=== PATIENT | male | born 1970 | race Caucasian/White ===

== ENCOUNTER 2017-05-01 21:04 | Emergency (ER) | payer OTHER ==
[2017-05-01 21:54] LABS: BASOPHILS 0.5 % (0-2); EOSINOPHILS 2.5 % (0-7); HEMATOCRIT 42.2 % (42.0-54.0); HEMOGLOBIN 13.9 g/dL (13.5-17.5); IMMATURE GRANULOCYTES 0.1 % (0-5); LYMPHOCYTES 30.7 % (15-50); MCH 27.8 pg (26.0-34.0); MCHC 32.9 g/dL (31.0-37.0); MCV 84.4 fL (80.0-100.0); MEAN PLATELET VOLUME 10.7 fL (7.4-10.4); MONOCYTES 9.9 % (2-11); NEUTROPHILS 56.3 % (40-80); PLATELET COUNT 297 10x3/uL (130-400); RDW 12.7 % (11.5-14.5); WBC 8.6 10x3/uL (4.8-10.8)
[2017-05-01 22:12] LABS: ALBUMIN 3.8 g/dL (3.4-5.0); ALKALINE PHOSPHATASE 122 U/L (46-116); ALT (SGPT) 36 U/L (10-68); CALC OSMOLALITY 281 mosm/kg (275-300); CALCIUM 9.1 mg/dL (8.5-10.1); CARBON DIOXIDE 28.3 mmol/L (21.0-32.0); CHLORIDE - SERUM 104 mmol/L (98-107); CREATININE - SERUM 1.4 mg/dL (0.6-1.3); GLUCOSE 114 mg/dL (74-106); POTASSIUM - SERUM 3.6 mmol/L (3.5-5.1); PROTEIN - SERUM 7.5 g/dL (6.4-8.2); SODIUM 140 mmol/L (136-145); UREA NITROGEN 17 mg/dL (7-18); eGFR NON AFRICAN AMERICAN 57 mL/min (90-120)
[2017-05-01 22:22] LABS: CHOL - HDL RATIO 4.2 ratio (2.3-4.9); CHOLESTEROL, TOTAL 157 mg/dL (0-200); CKMB 2.4 U/L (0.0-3.6); CREATINE KINASE 338 UL (21-232); HDL CHOLESTEROL 37 mg/dL (32-96); LDL CHOLESTEROL 91 mg/dL (0-100); LDL-HDL RATIO 2.5 ratio (1.5-3.5); TRIGLYCERIDE 145 mg/dL (30-200); TROPONIN-I < 0.017 ng/mL (0.000-0.060)
== END 2017-05-02 01:05 | disposition home or self-care (01) ==
LOC: D.ER 21:04
PROVIDERS: Emergency Medicine
DX: R07.9 Chest pain, unspecified (principal); R42 Dizziness and giddiness; I10 Essential (primary) hypertension; F41.9 Anxiety disorder, unspecified

== ENCOUNTER 2018-04-10 22:13 | Observation (INO) | payer OTHER ==
[~2018-04-10] VITALS: Ht 185.4 cm; Wt 97.5 kg
--- NOTE | ~2018-04-10 | MORECARE ---
CASE MANAGEMENT DISCHARGE SUMMARY PATIENT: TAYLOR BANEGAS UNIT: [id number] ADM DATE: 04/12/18 AGE: 47 : [birth year] SEX: M ROOM/BED: D.2101 AUTHOR: ALLI,DOC PHYSICIAN: REFERRING PHYSICIAN: THERESA RICHTER MD DATE OF SERVICE: 04/16/18 Discharge Plan Patient Name: TAYLOR BANEGAS Facility: [facility]:[place] : 1970 Planned Disposition: Home Anticipated Discharge Date: 04/16/18 Discharge Date: 04/16/2018 Expected LOS: 4 Initial Reviewer: [email or web address] Initial Review Date: 04/16/2018 Generated: 04/16/18 5:43 pm Comments DCP- Discharge Planning Updated by [email or web address]: Papi Du on 04/16/18 3:[address] Patient Name: TAYLOR BANEGAS Admission Status: ER Accout number: [id number] Admission Date: 04-12-2018 : 1970 Admission Diagnosis:SEPSIS, UNSPECIFIED ORGANISM Attending: THERESA RICHTER Current LOS: 4 Anticipated DC Date: 04-16-2018 Planned Disposition: Home Primary Insurance: [facility] PPO Discharge Planning Comments: * Is the patient Alert and Oriented? Yes 0 * How many steps to enter\exit or inside your home? 4 0 * PCP DR. NAKITA JONES NELLIS 0 * Pharmacy [facility] 0 * Preadmission Environment Home with Family 0 * ADLs Independent 0 * Equipment None 0 * Other Equipment NO MEDICAL EQUIPMENT PROVIDER PREFERENCE 0 * List name and contact numbers for known caregivers / representatives who currently or will assist patient after discharge: NADIA BANEGAS, SPOUSE, 0 * Verbal permission to speak to the caregivers and representatives has been obtained from the patient. N/A 0 * Community resources currently utilized None 0 * Please name any agencies selected above. NONE 0 * Additional services required to return to the preadmission environment? No 0 * Can the patient safely return to the preadmission environment? Yes 0 * Has this patient been hospitalized within the prior 30 days at any hospital? No 0 CM MET WITH PT IN ROOM TO DISCUSS DISCHARGE PLANNING AND NEEDS. PT REPORTS LIVING AT HOME INDEPENDENTLY WITH SPOUSE. PT HAS NO MEDICAL EQUIPMENT AND NO OUTSIDE SERVICES ASSISTING IN THE HOME. CM DISCUSSED AVAILABILITY OF HOME HEALTH, REHAB SERVICES AND MEDICAL EQUIPMENT. PT DENIES DISCHARGE NEEDS, REPORTS HE IS DRIVING HIMSELF HOME FOR DISCHARGE TODAY. PT REPORTS HAVING NO NARCOTICS IN 24 HOURS AND FEELS FINE TO DRIVE. SHANK STITCHER NURSE NOTIFIED. Animal Surgeon: Papi Du DCPIA - Discharge Planning Initial Assessment Updated by [email or web address]: Papi Du on 04/16/18 4:39 pm * Is the patient Alert and Oriented? Yes * How many steps to enter\exit or inside your home? * PCP DR. NAKITA JONES NELLIS * Pharmacy [facility] * Preadmission Environment Home with Family * ADLs Independent * Equipment None * Other Equipment NO MEDICAL EQUIPMENT PROVIDER PREFERENCE * List name and contact numbers for known caregivers / representatives who currently or will assist patient after discharge: NADIA BANEGAS, SPOUSE, * Verbal permission to speak to the caregivers and representatives has been obtained from the patient. N/A * Community resources currently utilized None * Please name any agencies selected above. NONE * Additional services required to return to the preadmission environment? No * Can the patient safely return to the preadmission environment? Yes * Has this patient been hospitalized within the prior 30 days at any hospital? No Patient Name: TAYLOR BANEGAS Page [id number] at 1643 All edits/amendments must be made on the electronic document DICTATION DATE: 04/16/181642 FIRER LOCOMOTIVE CRANE: JERRY 04/16/181642 RPT#: [id number] DC DATE:04/16/18 STATUS: DIS IN [facility] [address] [place] [address] END OF REPORT
--- NOTE | ~2018-04-10 | OP ---
PATIENT NAME: TAYLOR BANEGAS MEDICAL RECORD: [id number] :[birth year] LOCATION:D.M2 D.2101 ADMISSION DATE:04/12/18 SURGEON: ADDISON PACK MD DATE OF OPERATION: 04/12/2018 PREOPERATIVE DIAGNOSES: 1. Gallstones. 2. Sepsis. POSTOPERATIVE DIAGNOSES: 1. Acute cholecystitis with gallstones. 2. Sepsis. PROCEDURE: Laparoscopic cholecystectomy. SURGEON: Addison Pack MD BROADCAST OPERATIONS DIRECTOR: Trixie Cruz APRN REPORT OF OPERATION: The patient's abdomen was prepped and draped in sterile fashion. A cutdown was made on the superior aspect of the umbilicus. Vicryls #0 were placed on the fascia bilaterally and the fascia was incised with #15 blade. I then bluntly entered the peritoneal cavity and placed a 12-mm Marcia port. Under direct visualization, a 5-mm trocar was placed in the epigastrium and two more 5-mm trocars were placed in the right subcostal region. The gallbladder was grasped and elevated. It was noted to be markedly distended and inflamed. A needle was used to cannulate the gallbladder and removed some of the bilious contents. The gallbladder had multiple stones in it, but there was a very large stone present at the infundibulum, blocking off the exit. The cystic duct was dissected free. This was small in caliber. This was clipped proximally and distally, and ligated. The patient had 2 separate branches of the cystic artery. These were clipped proximally and distally, and ligated. As we took the gallbladder off the liver bed, there was a large vascular structure present posteriorly, most likely a vein. This was clipped proximally and distally and ligated as well. The gallbladder was taken off the liver bed and placed into an EndoCatch bag. We then irrigated out the right upper quadrant and any bleeding found was treated with electrocautery. At this point, the ports and insufflation were then removed and the gallbladder was taken out through the umbilicus. The umbilical fascia was closed with interrupted #0 Vicryls times 4. The wounds were then irrigated out with normal saline and infused with 10 mL of 0.25% Marcaine with epinephrine. The skin incisions were closed with subcutaneous 5-0 Monocryl and dressed appropriately. COMPLICATIONS: None. CONDITION: Stable. ANESTHESIA: General endotracheal and local. BLOOD LOSS: 30 mL. TRANSINT:[id number] Voice Confirmation ID: [id number] DOCUMENT ID: [id number] OPERATIVE REPORT [id number] TAYLOR ABNEGAS CHRISTIAN MD at 1409 CC: [id number] DICTATION DATE: 04/12/18 1345 YOUTH MINISTER: 04/12/18 1444 DIS IN 04/16/18 [place] [id number] [place] [id number]
[2018-04-10 22:34] LABS: BASOPHILS 0.9 % (0-2); EOSINOPHILS 2.5 % (0-7); HEMATOCRIT 45.3 % (42.0-54.0); HEMOGLOBIN 15.4 g/dL (13.5-17.5); IMMATURE GRANULOCYTES 0.2 % (0-5); LYMPHOCYTES 44.3 % (15-50); MCH 28.7 pg (26.0-34.0); MCV 84.4 fL (80.0-100.0); MEAN PLATELET VOLUME 10.9 fL (7.4-10.4); MONOCYTES 10.3 % (2-11); NEUTROPHILS 41.8 % (40-80); PLATELET COUNT 294 10x3/uL (130-400); RBC 5.37 10x6/uL (4.20-6.10); WBC 9.2 10x3/uL (4.8-10.8)
[2018-04-10 22:52] LABS: APTT 26.7 SECONDS (22.8-39.4); INR 0.94 (0.85-1.17); PROTIME 12.2 SECONDS (11.6-15.0)
[2018-04-10 23:02] LABS: ALBUMIN 4.1 g/dL (3.4-5.0); ALKALINE PHOSPHATASE 99 U/L (46-116); ALT (SGPT) 38 U/L (10-68); BILIRUBIN - TOTAL 0.31 mg/dL (0.2-1.3); CALC OSMOLALITY 290 mosm/kg (275-300); CALCIUM 9.6 mg/dL (8.5-10.1); CARBON DIOXIDE 27.7 mmol/L (21.0-32.0); CHLORIDE - SERUM 104 mmol/L (98-107); CREATININE - SERUM 1.3 mg/dL (0.6-1.3); GLUCOSE 108 mg/dL (74-106); POTASSIUM - SERUM 3.6 mmol/L (3.5-5.1); PROTEIN - SERUM 8.3 g/dL (6.4-8.2); SODIUM 144 mmol/L (136-145); UREA NITROGEN 22 mg/dL (7-18); eGFR NON AFRICAN AMERICAN 62 mL/min (90-120)
[2018-04-10 23:17] LABS: CKMB 6.4 U/L (0.0-3.6); CREATINE KINASE 622 UL (21-232); PRO BNP 26 pg/mL (0-125)
[2018-04-10 23:18] LABS: AMYLASE - SERUM 64 U/L (25-115); LIPASE 153 U/L (73-393); TROPONIN-I < 0.017 ng/mL (0.000-0.060)
[2018-04-11 03:10] VITALS: BMI 29.7
[2018-04-11 06:19] VITALS: BP 136/90
[2018-04-11 06:41] LABS: ALBUMIN 3.7 g/dL (3.4-5.0); ANION GAP 12.5 mmol/L (8-16); BILIRUBIN - TOTAL 0.38 mg/dL (0.2-1.3); CALCIUM 9.1 mg/dL (8.5-10.1); CARBON DIOXIDE 29.3 mmol/L (21.0-32.0); CREATININE - SERUM 1.2 mg/dL (0.6-1.3); POTASSIUM - SERUM 3.8 mmol/L (3.5-5.1); PROTEIN - SERUM 7.4 g/dL (6.4-8.2)
[2018-04-11 08:52] VITALS: Ht 185.4 cm; Wt 97.5 kg
[2018-04-11 09:30] VITALS: BP 127/74
[2018-04-12 00:46] VITALS: BP 125/72
[2018-04-12 04:00] VITALS: BP 124/81
[2018-04-12 06:15] LABS: BASOPHILS 0.3 % (0-2); EOSINOPHILS 0.3 % (0-7); HEMATOCRIT 40.7 % (42.0-54.0); HEMOGLOBIN 13.4 g/dL (13.5-17.5); IMMATURE GRANULOCYTES 0.4 % (0-5); LYMPHOCYTES 9.6 % (15-50); MCH 28.2 pg (26.0-34.0); MCHC 32.9 g/dL (31.0-37.0); MCV 85.7 fL (80.0-100.0); MEAN PLATELET VOLUME 11.8 fL (7.4-10.4); MONOCYTES 10.1 % (2-11); NEUTROPHILS 79.3 % (40-80); RBC 4.75 10x6/uL (4.20-6.10); RDW 13.2 % (11.5-14.5)
[2018-04-12 06:18] LABS: PLATELET COUNT 214 10x3/uL (130-400); WBC 17.8 10x3/uL (4.8-10.8)
[2018-04-12 06:44] LABS: CKMB 1.5 U/L (0.0-3.6); CREATINE KINASE 658 UL (21-232); LIPASE 74 U/L (73-393)
[2018-04-12 06:48] LABS: AMYLASE - SERUM 33 U/L (25-115); TROPONIN-I < 0.017 ng/mL (0.000-0.060)
[2018-04-12 08:48] VITALS: BP 128/81
[2018-04-12 16:56] VITALS: BP 122/81
[2018-04-12 23:12] VITALS: BP 134/84
[2018-04-13 02:38] VITALS: BP 126/80
[2018-04-13 06:07] VITALS: BP 114/77
[2018-04-13 07:02] LABS: APPEARANCE CLEAR (CLEAR); BILIRUBIN NEGATIVE (NEGATIVE); COLOR YELLOW (YELLOW); GLUCOSE NEGATIVE (NEGATIVE); KETONE NEGATIVE (NEGATIVE); NITRITE NEGATIVE (NEGATIVE); PROTEIN NEGATIVE (NEGATIVE); UROBILINOGEN NORMAL (NORMAL)
[2018-04-13 08:00] VITALS: BP 117/77
[2018-04-13 11:30] LABS: ANION GAP 12.6 mmol/L (8-16); CALCIUM 8.8 mg/dL (8.5-10.1); CARBON DIOXIDE 25.2 mmol/L (21.0-32.0); CREATININE - SERUM 1.3 mg/dL (0.6-1.3); POTASSIUM - SERUM 3.8 mmol/L (3.5-5.1)
[2018-04-13 11:38] LABS: HEMATOCRIT 36.1 % (42.0-54.0); HEMOGLOBIN 12.1 g/dL (13.5-17.5); MCH 28.2 pg (26.0-34.0); MCHC 33.5 g/dL (31.0-37.0); MCV 84.1 fL (80.0-100.0); MEAN PLATELET VOLUME 11.3 fL (7.4-10.4); PLATELET COUNT 206 10x3/uL (130-400); RBC 4.29 10x6/uL (4.20-6.10)
[2018-04-13 12:57] LABS: LYMPHOCYTES 9 % (15-50); MONOCYTES 11 % (2-11); NEUTROPHILS 77 % (40-80); PLATELET ESTIMATE NORMAL; ROULEAUX OCC
[2018-04-13 20:00] VITALS: BP 126/78
[2018-04-14] VITALS: BP 133/82
[2018-04-14 04:00] VITALS: BP 141/88
[2018-04-14 08:35] VITALS: BP 141/91
[2018-04-14 20:00] VITALS: BP 125/87
[2018-04-15] VITALS: BP 125/91
[2018-04-15 04:00] VITALS: BP 117/79
[2018-04-15 05:33] LABS: BASOPHILS 0.6 % (0-2); EOSINOPHILS 1.9 % (0-7); HEMATOCRIT 39.2 % (42.0-54.0); HEMOGLOBIN 13.1 g/dL (13.5-17.5); IMMATURE GRANULOCYTES 0.5 % (0-5); LYMPHOCYTES 30.8 % (15-50); MCHC 33.4 g/dL (31.0-37.0); MCV 83.8 fL (80.0-100.0); MONOCYTES 11.1 % (2-11); NEUTROPHILS 55.1 % (40-80); RBC 4.68 10x6/uL (4.20-6.10); RDW 13.2 % (11.5-14.5)
[2018-04-15 05:35] LABS: PLATELET COUNT 263 10x3/uL (130-400); WBC 7.8 10x3/uL (4.8-10.8)
[2018-04-15 08:34] VITALS: BP 128/87
[2018-04-15 12:12] VITALS: BP 129/84
[2018-04-15 15:14] VITALS: BP 140/98
[2018-04-15 20:00] VITALS: BP 134/76
[2018-04-16] VITALS: BP 133/76
[2018-04-16 04:00] VITALS: BP 128/69
[2018-04-16 06:32] LABS: BASOPHILS 0.5 % (0-2); EOSINOPHILS 2.5 % (0-7); HEMOGLOBIN 13.8 g/dL (13.5-17.5); LYMPHOCYTES 30.2 % (15-50); MCH 28.2 pg (26.0-34.0); MCHC 33.7 g/dL (31.0-37.0); MCV 83.8 fL (80.0-100.0); MEAN PLATELET VOLUME 10.9 fL (7.4-10.4); NEUTROPHILS 55.8 % (40-80); PLATELET COUNT 312 10x3/uL (130-400); RBC 4.89 10x6/uL (4.20-6.10); WBC 9.3 10x3/uL (4.8-10.8)
[2018-04-16 09:54] VITALS: BP 131/101
[2018-04-16 11:39] VITALS: BP 142/85
[2018-04-16] MEDS ORDERED: MIRALAX17 GM PO (13:17)
[2018-04-16] MEDS ORDERED: LEVAQUIN750 MG PO (13:22)
[2018-04-16] MEDS ORDERED: FLORAJEN3 CAPS460 MG PO (13:23)
[2018-04-16] MEDS ORDERED: FLAGYL500 MG PO (13:23)
[2018-04-16 15:25] VITALS: BP 124/89
== END 2018-04-16 15:29 | disposition home or self-care (01) ==
LOC: OBSVTIME → D.ER 22:13 → D.M2 04-11 02:03 → OBSVTIME 04-11 02:03 → D.M2 04-11 02:03 → D.ER 04-11 02:03 → D.M2 04-12 13:50
PROVIDERS: Family Medicine; Internal Medicine Nephrology
DX: A41.9 Sepsis, unspecified organism (principal); K80.00 Calculus of gallbladder with acute cholecystitis without obstruction; N17.9 Acute kidney failure, unspecified; J98.11 Atelectasis; F41.9 Anxiety disorder, unspecified; K59.09 Other constipation; K21.9 Gastro-esophageal reflux disease without esophagitis

== ENCOUNTER 2018-05-06 23:30 | Emergency (ER) | payer OTHER ==
[~2018-05-06] VITALS: Ht 185.4 cm; Wt 100.9 kg
[~2018-05-06 23:30] MED LIST: FLAGYL500 MG PO; FLORAJEN3 CAPS460 MG PO; LEVAQUIN750 MG PO; MIRALAX17 GM PO
[2018-05-06 23:38] VITALS: Ht 185.4 cm; Wt 100.9 kg
[2018-05-06] MEDS ORDERED: PRILOSEC (23:44)
[2018-05-07 00:13] LABS: HEMATOCRIT 44.4 % (42.0-54.0); HEMOGLOBIN 14.8 g/dL (13.5-17.5); MCH 27.6 pg (26.0-34.0); MCHC 33.3 g/dL (31.0-37.0); MCV 82.7 fL (80.0-100.0); MEAN PLATELET VOLUME 10.4 fL (7.4-10.4); NEUTROPHILS 47.3 % (40-80); PLATELET COUNT 294 10x3/uL (130-400); RBC 5.37 10x6/uL (4.20-6.10); RDW 12.5 % (11.5-14.5); WBC 6.9 10x3/uL (4.8-10.8)
[2018-05-07 00:17] LABS: APPEARANCE CLEAR (CLEAR); BILIRUBIN NEGATIVE (NEGATIVE); COLOR YELLOW (YELLOW); GLUCOSE NEGATIVE (NEGATIVE); KETONE NEGATIVE (NEGATIVE); NITRITE NEGATIVE (NEGATIVE); PROTEIN NEGATIVE (NEGATIVE); UROBILINOGEN NORMAL (NORMAL)
[2018-05-07 00:28] LABS: ALBUMIN 3.9 g/dL (3.4-5.0); ALKALINE PHOSPHATASE 113 U/L (46-116); ALT (SGPT) 36 U/L (10-68); AMYLASE - SERUM 73 U/L (25-115); BILIRUBIN - TOTAL 0.22 mg/dL (0.2-1.3); CALC OSMOLALITY 281 mosm/kg (275-300); CALCIUM 9.9 mg/dL (8.5-10.1); CARBON DIOXIDE 29.9 mmol/L (21.0-32.0); CHLORIDE - SERUM 104 mmol/L (98-107); GLUCOSE 85 mg/dL (74-106); LIPASE 177 U/L (73-393); POTASSIUM - SERUM 3.9 mmol/L (3.5-5.1); PROTEIN - SERUM 8.3 g/dL (6.4-8.2); SODIUM 142 mmol/L (136-145); TROPONIN-I < 0.017 ng/mL (0.000-0.060); UREA NITROGEN 13 mg/dL (7-18); eGFR NON AFRICAN AMERICAN 84 mL/min (90-120)
[2018-05-07] MEDS ORDERED: BENTYL10 MG PO ×2 (01:18→01:20)
[2018-05-07 01:54] VITALS: BP 132/77
== END 2018-05-07 01:55 | disposition home or self-care (01) ==
LOC: D.ER 23:30
PROVIDERS: Family Medicine
DX: R10.9 Unspecified abdominal pain (principal); I49.3 Ventricular premature depolarization